=== PATIENT | male | born 2005 | race African-American/Black ===

== ENCOUNTER 2025-07-25 17:17 | Emergency (ER) | payer MEDICAID, OTHER ==
[~2025-07-25] VITALS: Ht 172.7 cm; Wt 63.0 kg
[2025-07-25 17:23] VITALS: O2SAT 98
[2025-07-25] MEDS: LIDOCAINE 5% PATCH TOP STA (20:29)
[2025-07-25] MEDS: IBUPROFEN 600MG TABLET PO ONE (20:30)
[2025-07-25] MEDS ORDERED: IBUP-1455 MT (23:02)
[2025-07-25 23:08] VITALS: BP 150/93; PULSE 75; RESP 15; TEMP 36.7; O2SAT 99
== END 2025-07-25 23:12 | disposition home or self-care (01) ==
LOC: ER 17:17
DX: S39.92XA Unspecified injury of lower back, initial encounter (principal); M54.6 Pain in thoracic spine; Z98.890 Other specified postprocedural states; V43.52XA Car driver injured in collision with other type car in traffic accident, initial encounter; Y93.89 Activity, other specified; Y92.410 Unspecified street and highway as the place of occurrence of the external cause; Y99.8 Other external cause status
CPT/HCPCS: 72040; 72070; 72100; 99284